=== PATIENT | female | born 1980 | race Asian ===

== ENCOUNTER 2017-01-11 11:47 | Outpatient (CLI) | payer OTHER ==
--- NOTE | 2017-01-11 16:12 | Mammography Report ---
BILATERAL DIGITAL SCREENING MAMMOGRAM with CAD : 01/11/17 11:47:00 CLINICAL: Routine screening. COMPARISON:09/30/10 FINDINGS: The breasts are heterogeneously dense, which may obscure small masses.A heavily calcified benign right upper 6 mm mass. No new mass, architectural distortion or suspicious calcifications. IMPRESSION: No mammographic evidence of malignancy. BI-RADS CATEGORY: 2 -- Benign RECOMMENDATION: Routine mammographic screening in one year. COMMENT: Patient follow-up letters are generated by our [employer] application.
== END 2017-01-11 11:48 | disposition home or self-care (01) ==
LOC: SPVWC 11:47
PROVIDERS: ATTEND Physician Assistant
DX: Z12.31 Encounter for screening mammogram for malignant neoplasm of breast (principal)
CPT/HCPCS: 77067; G0202